=== PATIENT | male | born 1970 | race Caucasian/White ===

== ENCOUNTER 2018-01-02 08:42 | Emergency (ER) | payer OTHER ==
--- NOTE | 2018-01-02 09:12 | EDPHY ---
H & P Time Seen by Provider: 01/02/18 08:50 HPI/ROS: CLINICAL IMPRESSION: Right hand laceration ASSESSMENT/PLAN: 47-year-old male presents to the emergency department with an acute laceration to the palm of the right hand sustained after he slipped on a roof and grabbed the metal frame of a window. Patient has intact range of motion, distal 2 point discrimination and neurovascular exam is intact, no clinical evidence of extensor tendon injury. No radiologic evidence of foreign body or fracture. Wound was thoroughly irrigated and explored with no evidence of foreign body or deep structure injury. Sutures placed as per chart notes. Wound care discussed , signs and symptoms of infection reviewed, warning signs return to ED sooner outlined and discharge. Differential Dx: Differential diagnosis includes laceration, extensor tendon injury, retained foreign body, underlying fracture ED PROCEDURE: Laceration Repair Verbal consent obtained by patient. Risks discussed, including but not limited to infection, pain, retained foreign body, need for additional repair, poor cosmetic result, tendon damage, nerve damage, poor wound healing, vascular damage. Alternatives to repair discussed. [place] protocol used to establish correct patient, procedure, equipment, community support specialist, and site. Anesthesia obtained by local infiltration. Anesthetized with 0.5 % bupivacaine with epi. Laceration location palm of right hand, length 6 cm, depth 3 mm, Repair type simple. Patient was prepped and draped in usual sterile fashion. Hemostasis achieved with direct pressure. Wound explored through full range of motion and entire depth of wound probed and visualized with gloved finger. No suspicion for nerve damage, tendon damage, underlying fracture, vascular damage, foreign body, or contamination. Area was cleansed with Shur-Clens and irrigated with sterile saline as per protocol. No foreign body or material removed. Repair method for 4-0 Prolene. Twenty-one sutures placed. Well aligned, closely approximated. wound was dressed with antibiotic dressing, nonstick bandage, Kerlix. Patient tolerated well with no immediate complications. Wound care: Clean and dry x 24 hours, gently clean with soap and water, cover with topical antibiotic ointment/bandage. Suture/Staple removal: 10-14 days Days CHIEF COMPLAINT: Right hand laceration HPI: This is a pleasant [id number] 47-year-old male who works as a can[employer] and presents to the ED today with a right hand laceration. Patient was climbing out of a window to step onto the roof when he slipped on ice on the roof and cut the palm of his right hand on the metal frame of the window. There was no broken metal or glass that he is aware of. He reports some tingling in the right 4th finger but has full range of motion of all fingers, hand and wrist. He reports his tetanus is up-to-date. He denies any other injuries. No reports of forearm or elbow sensory changes. PMH: No significant past medical history Pertinent Past Surgical History: No orthopedic surgery Social History: Works as a [employer], right-hand dominant, tetanus up-to-date ROS: All other systems negative Constitutional: No fever, no chills Musculoskeletal: No deformity, + joint pain Skin: No rashes, color change. Neurological: No sensory loss or weakness. PHYSICAL EXAM: General Appearance: Alert, oriented, appropriate for age, cooperative, NAD, well hydrated, non-toxic appearing, VSS, no hypoxia. Neurological: Alert and oriented x 3, normal sensation and strength of extremities Skin: Warm, dry, no rashes, no nodules on palpation, large, stellate, approximately 4 cm laceration to the palm of the right hand. This includes several flap lacerations near the MCP joints. Musculoskeletal: Patient has full extension with and without resistance to all fingers of the right hand, normal flexion and extension of the wrist, pedicurist strength 5/5 bilaterally. Two point discrimination intact. MEDICAL DECISION MAKING: Patient was seen independently. Secondary supervising physician at time of evaluation was Dr. De Oliveira. Diagnosis: Right hand laceration. New, requires workup Summary: See assessment and plan for summary of ED visit Clinical lab tests: Not obtained. Independent visualization of images, tracing, or specimens yes, no evidence of foreign body or fracture. Patient Progress improved. Smoking Status: Never smoked Constitutional: Initial Vital Signs Temperature (C) 36.6 C 01/02/18 08:43 Heart Rate 92 01/02/18 08:43 Respiratory Rate 18 01/02/18 08:43 Blood Pressure 144/98 H 01/02/18 08:43 O2 Sat (%) 95 01/02/18 08:43 O2 Delivery Mode Room Air Allergies/Adverse Reactions: No Known Allergies Allergy (Unverified 01/02/18 08:46) Home Medications: Medication Instructions Recorded NK [No Known Home Meds] 01/02/18 MDM/Departure - MDM Imaging: I viewed and interpreted images myself - Depart Disposition: Home, Routine, Self-Care Clinical Impression: Laceration of hand Qualifiers: Encounter type: initial encounter Foreign body presence: without foreign body Laterality: right Qualified Code(s): S61.411A - Laceration without foreign body of right hand, initial encounter Condition: Good Instructions: Care For Your Stitches (ED), Laceration (ED) Additional Instructions: DISCHARGE INSTRUCTIONS FROM YOUR DOCTOR Thank you for visiting our emergency department today. Please keep in mind that discharge from the emergency department does not mean that there is nothing wrong - it simply means that we have not identified an emergency condition that requires further evaluation or treatment in the hospital. You should always plan to follow up with primary care for re-evaluation of your condition in the next 2-3 days. If you have been referred to a specialist, please call as soon as possible (today or tomorrow) to schedule your follow up appointment at the appropriate time. Please have sutures/milan removed in 10-14 Days. You can return to the emergency department or your primary care for suture/staple removal. Avoid submerging sutures/milan underwater for prolonged period of time until removed. Keep wound clean and dry, cover with antibiotic ointment and Band-Aid. Return to emergency department for redness, swelling, discharge, warmth to the skin, or any other concerns for infection. People present with illnesses and injuries in different ways, and it is always possible that we have missed something. You may always return for re-evaluation if symptoms worsen or if they are not improving or if you develop new/different symptoms. Again, thank you for choosing our emergency department. We hope that you feel better. Referrals: [facility] ,. [Edm Groups for Call Sched] - As per Instructions
[2018-01-02 10:33] VITALS: BP 149/96
== END 2018-01-02 10:33 | disposition home or self-care (01) ==
PROC: 0HQFXZZ Repair Right Hand Skin, External Approach (ICD-10-PCS; principal; 2018-01-02)
DX: S61.411A Laceration without foreign body of right hand, initial encounter (principal); W26.8XXA Contact with other sharp object(s), not elsewhere classified, initial encounter; Y92.89 Other specified places as the place of occurrence of the external cause; Y93.9 Activity, unspecified; Y99.9 Unspecified external cause status